=== PATIENT | female | born 1930 | race Caucasian/White ===

== ENCOUNTER 2018-04-20 21:48 | Emergency (ER) | payer OTHER, MEDICARE ==
[2018-04-20 22:23] VITALS: BMI 25.6
--- NOTE | 2018-04-20 22:52 | PDOC ---
History of Present Illness - General Chief Complaint: Injury Stated Complaint: FALL Time Seen by Provider: 04/20/18 22:40 History Source: Patient Exam Limitations: No Limitations - History of Present Illness Initial Comments: 04/21/18 00:01 The patient is an 87 year old female with past medical history of hydrocephalus s/p ventriculostomy, CAD s/p PCI/stenting on ASA, AAA repair, HTN, HLD, who presents to the ED s/p mechanical fall x2 today. Patient states she normally ambulates with a walker but wasnt using it today. The first time she fell she reports being asymptomatic and did not strike her head, no prodromal sx.. However, the second time, she struck her left side, injuring her left ribs and chin. She reports severe left rib and chest wall pain upon movement and taking deep breath. Patient denies any LOC during either fall and denies any lightheadedness, dizziness, palpitations, or chest pain preceding the incidents. She denies any visual changes, focal neurological deficits, or headache. Denies any recent illness, fever, chills. Denies any NVD, cough, SOB, or urinary complaints. Allergies: Sulfa Social Hx: Lives at home with her . Has an aide that comes daily. Reports history of smoking in youth. 04/21/18 00:01 04/21/18 02:03 Past History - Past Medical History Allergies/Adverse Reactions: Allergies Allergy/AdvReac Type Severity Reaction Status Date / Time Sulfa (Sulfonamide Allergy Unknown Verified 04/20/18 23:43 Antibiotics) Home Medications: Ambulatory Orders Aspirin 81 mg PO DAILY 04/20/18 Metoprolol Tartrate 25 mg PO BID 04/20/18 Travoprost [Travatan Z] 2.5 ml OP DAILY 04/20/18 Atorvastatin Ca [Lipitor] 80 mg PO HS 04/21/18 Lidocaine 5% Patch [Lidoderm Patch -] 1 patch TP DAILY #7 patch 04/21/18 Umeclidinium Palmetto [Incruse Ellipta] 62.5 mcg IH DAILY 04/21/18 - Suicide/Smoking/Psychosocial Hx Smoking History: Never smoked Have you smoked in the past 12 months: No Information on smoking cessation initiated: No Hx Alcohol Use: No Drug/Substance Use Hx: No Review of Systems - Review of Systems Able to Perform ROS?: Yes Comments:: 04/21/18 00:01 Constitutional: no fevers or chills. HEENT: no headache or dizziness. No congestion. No visual/hearing disturbances. CVS: no cp or syncope. chest wall pain. Resp: no sob. No cough. Gastrointestinal: no abdominal pain, nausea or vomiting. Genitourinary: no urinary sx, hematuria. MUSCULOSKELETAL: No joint pain and swelling. No neck or back pain. SKIN: no redness or skin changes, no discharge, no rash. No wounds. Hematologic: no easy bruising/bleeding. NEUROLOGIC: No headache, dizziness, LOC or altered mental status. No weakness, numbness or tingling. Allergic/Immunologic: no allergies All other systems reviewed and negative, or as documented in HPI. *Physical Exam - Vital Signs Last Vital Signs Temp Pulse Resp BP Pulse Ox 98.6 F 77 18 144/76 93 L 04/20/18 22:21 04/20/18 22:21 04/20/18 22:21 04/20/18 22:21 04/20/18 22:21 - Physical Exam Comments: 04/21/18 00:01 General: GCS 15 NAD, mild distress 2/2 pain. HEENT: NCAT, PERRL, EOMI. Airway intact. left mandibular ecchymosis, nontender, dentition intact, no trismus. no TMJ instability or tenderness. Neck: neck supple, no midline C spine tenderness, ROM intact. Resp: bilateral crackles. Lungs otherwise clear, no respiratory distress. no crepitus Chest: +left lateral chest wall tenderness, no crepitus. No overlying ecchymosis or skin changes. CVS: RRR, 2+ pulses throughout. Abdomen: Abdomen soft, NTND, nonperitoneal. Back: Back nontender, no midline spinal tenderness, FROM, no stepoffs. MSK: Pelvis stable, FROM in all extremities. No focal msk tenderness in all extremities. Neuro: Alert, no focal neuro deficits. 5/5 shaper operator and prox/distal strength in all extrem. Skin: intact, normal color and well perfused. 04/21/18 00:03 Moderate Sedation - Procedure Monitoring Vital Signs: Procedure Monitoring Vital Signs Temperature 98.6 F 04/20/18 22:21 Pulse Rate 77 04/20/18 22:21 Respiratory Rate 18 04/20/18 22:21 Blood Pressure 144/76 04/20/18 22:21 O2 Sat by Pulse Oximetry (%) 93 L 04/20/18 22:21 ED Treatment Course - LABORATORY CBC & Chemistry Diagram: 04/20/18 23:30 04/20/18 23:30 Medical Decision Making - Medical Decision Making 04/21/18 00:03 Trauma ddx: ICH, C spine injury, facial fx/facial contusion, pleural effusion/ hemothorax., PTX, pulmonary/chest wall contusion, pelvis fracture. MSK contusion. Rib fractures. Intra abdominal and thoracic injuries, bleed VS wnl, reassuring analgesia with topical lidoderm, tylenol and morphine, with some relief. repeat VS with normal O2 sat, no respiratory distress, pain controlled, taking in incentive nely well. repeat VS with low sat, but has h/o COPD. no O2 requirement, no respiratory distress. also mild borderline BP, but did get morphine earlier, likely effect. rechecked , normotensive also took in 1000cc on IS without difficulty. CT head_ventriculostomy in place; no bleed CT c spine with degenerative changes, no acute fx. CT facial bones neg for fx, +mucosal sinus disease. CT chest neg for PTX or fx, emphysematous changes. dispo: fall prevention safety. instructions to use the walker at all times, maintain safe environment. Pt informed of my clinical impression, treatment recommendations and disposition plan. All questions answered to patient's satisfaction and expressed understanding and comfort with this. Reasons for returning to the ED sooner discussed with the patient otherwise, follow up with primary care physician. At the time of discharge, the patient is alert, clinically improved, tolerating po and verbalizes understanding of instructions. 04/21/18 04:56 04/21/18 05:06 *DC/Admit/Observation/Transfer Diagnosis at time of Disposition: Fall, Contusion of jaw Chest wall contusion Qualifiers: Encounter type: initial encounter Laterality: left Qualified Code(s): S20.212A - Contusion of left front wall of thorax, initial encounter - Discharge Dispostion Disposition: HOME Condition at time of disposition: Improved Decision to Admit order: No - Prescriptions Prescriptions: Lidocaine 5% Patch [Lidoderm Patch -] 1 patch TP DAILY #7 patch - Referrals Referrals: [facility] [place] [Provider Group] [facility] - Patient Instructions Printed Discharge Instructions: DI for Rib Contusion, How to Prevent Falls Additional Instructions: use your walker at all times. avoid risk factors and triggers for fall use the incentive spirometer every hours and breathing exercises for your chest wall contusion and preventing breakdown of lung and pneumonia/respiratory failure. if worsening symptoms of chest pain, respiratory distress, fever, dehydration, more falls and injuries, return sooner. follow up with your primary care doctor you can use tylenol every 6 hours for pain. lidoderm patch over the affected chest wall area for pain relief as well. FALL PREVENTION AT HOME WHAT YOU NEED TO KNOW There are many different factors that can increase your risk of falls. Falls can happen any time, but the majority of them occur in the home. Fall prevention includes ways to make your home and other areas safer. It also includes ways you can move more carefully to prevent a fall. Health conditions that cause changes in your blood pressure, vision, or muscle strength and coordination may increase your risk for falls. Medicines, including anesthesia, may increase your risk for falls if they make you dizzy, weak, or sleepy. FALL PREVENTION TIPS Stand or sit up slowly. This may help you keep your balance and prevent falls. Do not walk and talk at the same time. Concentrate on the task of walking and continue the conversation after you've reached a safe place. Wear shoes that fit well and have soles that shaper operator. Wear shoes both inside and outside. Use slippers with good shaper operator. Avoid shoes with high heels. Use assistive devices as directed. Your healthcare provider may suggest that you use a cane or walker to help you keep you balance. Be sure you have adequate lighting throughout your house. Keep paths clear. Remove books, shoes and other objects from walkways and stairs. Keep cords for telephones and lamps out of the way so you dont need to walk over them. Remove small rugs or secure them with double-sided tape. This will prevent you from tripping. Use a nightlight when getting out of bed at night. Stay active to maintain overall strength and endurance. Know your limitations. If there is a task you can not complete with ease, do not risk a fall by trying to complete it. Call 911 or have someone else call if: You have fallen and are unconscious You have fallen and cannot move part of your body Contact your healthcare provider if: You have fallen and have pain or a headache You have questions or concerns about your condition or care. - Post Discharge Activity
[2018-04-20] MEDS ORDERED: LIDOCAINE 5% TOPICAL PATCH TP ONE (23:02)
[2018-04-20] MEDS ORDERED: morphine SULFATE 4 MG/ML VIAL IVPUSH ONE (23:03)
[2018-04-20 23:40] LABS: BASO % 0.4 % (0-2.0); EOS % 0.1 % (0-4.5); HEMATOCRIT 37.1 % (32.4-45.2); LYMPH % 6.1 % (8-40); MCH 30.5 pg (25.7-33.7); MCHC 35.1 g/dl (32.0-36.0); MEAN PLT VOLUME 8.9 fl (7.5-11.1); NEUT % 87.4 % (42.8-82.8); PLATELET COUNT 145 K/MM3 (134-434); RBC 4.27 M/mm3 (3.60-5.2); RDW 16.5 % (11.6-15.6); WHITE BLOOD COUNT 9.8 K/mm3 (4.0-10.0)
[2018-04-20] MEDS ORDERED: morphine SULFATE 4 MG/ML VIAL ONE (23:47)
[2018-04-20] MEDS ORDERED: LIDOCAINE 5% TOPICAL PATCH ONE (23:47)
[2018-04-20 23:51] LABS: INR 1.04 (0.83-1.09); PROTHROMBIN TIME (PATIENT) 12.3 SEC (9.7-13.0)
[2018-04-21 00:05] LABS: ANION GAP 9 MMOL/L (8-16); BLOOD UREA NITROGEN 25 mg/dL (7-18); CALCIUM 8.8 mg/dL (8.5-10.1); CHLORIDE 102 mmol/L (98-107); CO2 25 mmol/L (21-32); CREATININE 1.1 mg/dL (0.55-1.3); GLUCOSE,RANDOM 131 mg/dL (74-106); POTASSIUM 3.9 mmol/L (3.5-5.1); SODIUM 136 mmol/L (136-145)
[2018-04-21] MEDS ORDERED: ACETAMINOPHEN 325 MG TABLET (FP) PO ONE (02:04)
[2018-04-21] MEDS ORDERED: ACETAMINOPHEN 325 MG TABLET (FP) ONE (02:16)
[2018-04-21 04:46] VITALS: PULSE 68; TEMP 97.7
[2018-04-21 05:06] VITALS: BP 130/78
[2018-04-21] MEDS ORDERED: LIDOCAINE PATCH REMOVAL MC ONE (11:00)
== END 2018-04-21 06:23 | disposition home or self-care (01) ==
LOC: JER 21:48
PROC: 3E033NZ Introduction of Analgesics, Hypnotics, Sedatives into Peripheral Vein, Percutaneous Approach (ICD-10-PCS; principal; 2018-04-20)
DX: S20.212A Contusion of left front wall of thorax, initial encounter (principal); S00.83XA Contusion of other part of head, initial encounter; W18.39XA Other fall on same level, initial encounter; Y93.89 Activity, other specified; Y92.89 Other specified places as the place of occurrence of the external cause; G91.9 Hydrocephalus, unspecified; I25.10 Atherosclerotic heart disease of native coronary artery without angina pectoris; I71.4 Abdominal aortic aneurysm, without rupture; I10 Essential (primary) hypertension; E78.5 Hyperlipidemia, unspecified
CPT/HCPCS: 36415; 70450-TC; 70486-TC; 71250-TC; 72125-TC; 80048; 85025; 85610; 96374; 99282-25